=== PATIENT | female | born 1940 | race Caucasian/White ===

== ENCOUNTER → 2017-04-01 | Outpatient (CLI) | payer BC, MEDICARE ==
--- NOTE | 2017-04-05 10:45 | MM ---
Reason for exam: screening (asymptomatic). Last mammogram was performed 1 year ago. History: Patient is postmenopausal. Pre-pectoral silicone gel implants in both breasts, March 14, 2009. Benign stereotactic core biopsy of the right breast, September 25, 1997. Benign cyst aspiration of the right breast. Benign core biopsy of the right breast. Benign excisional biopsy of the left breast. Taking estrogen for 16 years beginning at age 47. Taking progesterone for 16 years beginning at age 47. Physical Findings: A clinical breast exam by your physician is recommended on an annual basis and results should be correlated with mammographic findings. MG 3D Screen Mammo Imp/Cad Bilateral CC, MLO, and ID view(s) were taken. Prior study comparison: March 31, 2016, bilateral MG 3d screen mammo imp/cad. March 18, 2015, bilateral MG screening mammo implant/CAD. The breast tissue is heterogeneously dense. This may lower the sensitivity of mammography. Finding: There are occasional typically benign round calcifications in the left breast. There is no discrete abnormality. Bilateral subglandular implants redemonstrated. ASSESSMENT: Benign, BI-RAD 2 RECOMMENDATION: Routine screening mammogram of both breasts.
== END ==
LOC: RADMAMWWP 09:30
PROVIDERS: ATTEND Obstetrics & Gynecology
DX: Z12.31 Encounter for screening mammogram for malignant neoplasm of breast (principal)
CPT/HCPCS: 77063; G0202

== ENCOUNTER → 2018-02-02 | Outpatient (CLI) | payer BC, MEDICARE ==
--- NOTE | 2018-02-03 08:05 | MM ---
Reason for exam: screening (asymptomatic). Last mammogram was performed 10 months ago. History: Patient is postmenopausal. Pre-pectoral silicone gel implants in both breasts, March 14, 2009. Benign stereotactic core biopsy of the right breast, September 25, 1997. Benign cyst aspiration of the right breast. Benign core biopsy of the right breast. Benign excisional biopsy of the left breast. Took estrogen for 30 years beginning at age 47. Took progesterone for 30 years beginning at age 47. Physical Findings: A clinical breast exam by your physician is recommended on an annual basis and results should be correlated with mammographic findings. MG 3D Screen Mammo Imp/Cad Bilateral CC, MLO, and ID view(s) were taken. Prior study comparison: April 01, 2017, bilateral MG 3d screen mammo imp/cad. March 31, 2016, bilateral MG 3d screen mammo imp/cad. There are scattered fibroglandular densities. Finding: There are typically benign round calcifications in the upper outer quadrant, anterior position of the left breast. There is no discrete abnormality. Bilateral subareolar implants redemonstrated. ASSESSMENT: Benign, BI-RAD 2 RECOMMENDATION: Routine screening mammogram of both breasts in 1 year.
== END | disposition home or self-care (01) ==
LOC: RADMAMWWP 07:42
PROVIDERS: ATTEND Obstetrics & Gynecology
DX: Z12.31 Encounter for screening mammogram for malignant neoplasm of breast (principal); Z98.82 Breast implant status
CPT/HCPCS: 77063; 77067

== ENCOUNTER 2018-05-31 06:14 | Day surgery (SDC) | payer BC, MEDICARE ==
[2018-05-11 09:21] VITALS: BMI 22.3
--- NOTE | 2018-05-30 18:23 | P.HPOB ---
History of Present Illness H&P Date: 05/30/18 Chief Complaint: Postmenopausal bleeding, endometrial thickening This is a 77 y.o. female, 5, para 2, who presents for dilation and curettage with hysteroscopy secondary to post-menopausal bleeding and endometrial thickening on ultrasound. She has been bleeding off and on for about 8 months. Sometimes the bleeding lasts for a couple weeks. Pelvic ultrasound showed uterus measuring 6.4 x 4.4 x 3 cm with endometrial thickness of 8 mm and submucosal fibroid measuring 1.2 x 1 cm. She had a similar episode of bleeding in May 2015 and hysteroscopy at that time showed atrophic lining and benign pathology. She has been on Prempro 0.3/1.5 for some time now and does not want to stop despite understanding the risks. She has also used estrogen cream occasionally for vaginal dryness. OB Hx: . History of 2 vaginal deliveries and 3 miscarriages. 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 Social hx: . Review of Systems Constitutional: Denies chills, Denies fever Eyes: denies blurred vision, denies pain Ears, nose, mouth and throat: Denies headache, Denies sore throat Cardiovascular: Denies chest pain, Denies shortness of breath Gastrointestinal: Denies abdominal pain, Denies diarrhea, Denies nausea, Denies vomiting Genitourinary: Reports abnormal vaginal bleeding, Reports stress incontinence Menstruation: Reports postmenopausal Musculoskeletal: Reports myalgias Integumentary: Denies pruritus, Denies rash Neurological: Denies numbness, Denies weakness Psychiatric: Reports insomnia, Denies anxiety, Denies depression Endocrine: Denies fatigue, Denies weight change Hematologic/Lymphatic: Reports easy bruising Past Medical History Past Medical History: Osteoarthritis (OA) Additional Past Medical History / Comment(s): PM BLEEDING, ONGOING. TOE FUNGUS. ENVIRONMENTAL ALLERGY SX OCC. SPASTIC COLON. History of Any Multi-Drug Resistant Organisms: None Reported Past Surgical History: Breast Surgery, Orthopedic Surgery, Tubal Ligation Additional Past Surgical History / Comment(s): ORTHO: LT 5TH FINGER (DUPUYTRENS) . D&C 4. Dental implant surgery. BENIGN BREAST CYST EXC. D&C, HYSTEROSCOPY 06/2015. Past Anesthesia/Blood Transfusion Reactions: No Reported Reaction Past Psychological History: No Psychological Hx Reported Smoking Status: Never smoker Past Alcohol Use History: Occasional Past Drug Use History: None Reported - Past Family History Father Family Medical History: Coronary Artery Disease (CAD), Deep Vein Thrombosis (DVT ), Myocardial Infarction (UT) Additional Family Medical History / Comment(s): DVT AFTER HIP SURGERY Mother Family Medical History: Coronary Artery Disease (CAD) Medications and Allergies Home Medications Medication Instructions Recorded Confirmed Type Celecoxib [CeleBREX] 200 mg PO QAM 07/04/15 05/31/18 History Estrogen,Con/M-Progest Acet 1 tab PO QAM 07/04/15 05/31/18 History [Prempro 0.3 mg-1.5 mg Tablet] Fluconazole [Diflucan] 150 mg PO Q7D 07/04/15 05/31/18 History Estrogens, Conjugated Cream 1 applicator VAGINAL WEEKLY PRN 07/07/15 05/31/18 History [Premarin Cream] Aspirin [Adult Low Dose Aspirin EC] 0.5 tab PO DAILY 05/11/18 05/31/18 History Citracel (Unknown Dose) 1 tab PO DAILY 05/11/18 05/31/18 History Ginkgo Biloba [place] Extract [Ginkgo 50 mg PO DAILY 05/11/18 05/31/18 History Biloba] Glucosamin Ds (Unknown Dose) 1 tab PO DAILY 05/11/18 05/31/18 History Ipratropium [place] 0.06%Nasal 2 spray EA NOSTRIL BID PRN 05/11/18 05/31/18 History [Atrovent Nasal 0.06%] Methylcellulose (with Sugar) 2 gm PO DAILY 05/11/18 05/31/18 History [Citrucel Powder] Multivit with Calcium,Iron,Min 1 each PO DAILY 05/11/18 05/31/18 History [Women's Multivitamin] Arjay-3/Dha/Epa/Fish Oil [Fish Oil 300 mg PO DAILY 05/11/18 05/31/18 History 500 mg Softgel] Vitamin B Complex/Folic Acid 0.4 mg PO DAILY 05/11/18 05/31/18 History [B-Complex Tablet] Allergies Allergy/AdvReac Type Severity Reaction Status Date / Time Penicillins Allergy Rash/Hives. Verified 05/31/18 06:38 SOB Sulfa (Sulfonamide Allergy Rash/Hives. Verified 05/31/18 06:38 Antibiotics) SOB. Exam Osteopathic Statement: *. No significant issues noted on an osteopathic structural exam other than those noted in the History and Physical/Consult. HEENT: Within normal limits Heart: regular rate and rhythm Lungs: clear to auscultation bilaterally Abdomen: soft, non-tender Pelvic: Parous stenotic os with slight friability. Uterus anteverted, non- tender, with no adnexal masses or tenderness Extremities: Neg. Grady's. Assessment and Plan (1) Endometrial thickening on ultra sound Current Visit: No Status: Acute Code(s): R93.8 - ABNORMAL FINDINGS ON DIAGNOSTIC IMAGING OF VIKTOR * DO NOT USE * SNOMED Code(s): 223927001 (2) Post-menopausal bleeding Current Visit: No Status: Acute Code(s): N95.0 - POSTMENOPAUSAL BLEEDING SNOMED Code(s): 35579820 Plan: Proceed with dilation and curettage with hysteroscopy. I have discussed the risks, benefits, and alternative therapies for the above- mentioned procedure and for both sedation/anesthesia as well as necessary blood products administration, if indicated, as they pertain to this patient. The patient has indicated her understanding and acceptance of the risks and procedures discussed.
[~2018-05-31 06:14] MED LIST: DEXAMETHASONE SOD PHOSPHATE 10 MG/ML 1 ML VIAL IV ONE; HYDROmorphone 0.5 MG/0.5 ML SYRINGE IVP PRN; LACTATED RINGERS 1,000 ML IV SCH; LIDOCAINE 1% 20 ML VIAL (10MG/ML) FOR IV START INTRADERMA PRN; ONDANSETRON 4 MG/2 ML VIAL IVP ONE; Pre Op ABX Message 1 EACH MISC MISCELLANE ONE; SCOPOLAMINE 1.5MG/72HR PATCH TRANSDERM ONE
[2018-05-31 07:08] VITALS: RESP 16
[2018-05-31] MEDS ORDERED: MIDAZOLAM 2 MG/2 ML VIAL ONE (07:26)
[2018-05-31] MEDS ORDERED: LIDOCAINE 1% INJ 10MG/ML (20 ML MDV) ONE (07:26)
[2018-05-31] MEDS ORDERED: PROPOFOL 10 MG/ML 20 ML VIAL IV ONE (07:26)
[2018-05-31] MEDS ORDERED: fentaNYL (PF) 50 MCG/ML 2 ML AMP ONE (07:26)
--- NOTE | 2018-05-31 07:56 | P.OP ---
Date of Procedure: 05/31/18 Preoperative Diagnosis: Postmenopausal bleeding, endometrial thickening Postoperative Diagnosis: Same Procedure(s) Performed: Dilation and curettage with hysteroscopy Anesthesia: other (Mask general) Surgeon: Sanjana Farmer Estimated Blood Loss (ml): 3 Pathology: other (Endometrial curettings) Disposition: same day Indications for Procedure: This is a 77 y.o. female, 5, para 2, who presents for dilation and curettage with hysteroscopy secondary to post-menopausal bleeding and endometrial thickening on ultrasound. She has been bleeding off and on for about 8 months. Sometimes the bleeding lasts for a couple weeks. Pelvic ultrasound showed uterus measuring 6.4 x 4.4 x 3 cm with endometrial thickness of 8 mm and submucosal fibroid measuring 1.2 x 1 cm. She had a similar episode of bleeding in May 2015 and hysteroscopy at that time showed atrophic lining and benign pathology. She has been on Prempro 0.3/1.5 for some time now and does not want to stop despite understanding the risks. She has also used estrogen cream occasionally for vaginal dryness. Operative Findings: Uterus is anteverted and sounded to 5 cm. No adnexal masses are palpated. Upon hysteroscopy a very atrophic endometrial appearance was noted. Her cervix was noted to be atrophic and friable with a stenotic cervical os. Very scant endometrial curettings were obtained. Description of Procedure: The patient is taken to the operating room she is placed in the dorsal lithotomy position. She is prepped and draped in the normal sterile fashion. Her bladder is drained with a catheter and then removed. Examination is performed under anesthesia. Uterus is found to be small, anteverted, with no adnexal masses palpated. Next a weighted speculum was placed in the patient's vagina and a right angle retractor was used to visualize the cervix. The cervix was noted to be slightly friable and stenotic. At first it was difficult even grasp the anterior lip of the cervix with a single-tooth tenaculum. I had to grasp the posterior lip of the cervix with a Allis clamp and then grasp the anterior lip with a single-tooth tenaculum. The Allis clamp was then removed. The cervix was noted to be stenotic and therefore slightly opened with a hemostat. Next the cervix was gently opened with the smallest Lord dilator and then uterine sound was sounded. Uterus was sounded to 5 cm. The cervix was gently dilated further until a hysteroscope could be passed. Hysteroscopy was performed using normal saline. The above-noted findings were made and pictures are taken. Next the hysteroscope was removed. The cervix is gently dilated further. A polyp forceps was introduced with no tissue obtained. Next a small sharp curet was reduced and sharp curettage was performed until a gritty texture was noted. Very scant tissue was obtained. Smooth contour was noted on curetting. The specimen was removed from the field. Single-tooth tenaculum was removed from the cervix. Normal bleeding was noted. All instruments are removed from the vagina. All sponge counts are correct. She is taken to recovery room in stable condition.
[2018-05-31 08:13] VITALS: TEMP 96.8
[2018-05-31] MEDS ORDERED: KETOROLAC 30 MG/ML 1 ML VIAL IVP ONE (08:17)
[2018-05-31 08:59] VITALS: PULSE 62
[2018-05-31 09:28] VITALS: BP 113/57
== END 2018-05-31 10:08 | disposition home or self-care (01) ==
LOC: OR 06:14
PROVIDERS: ATTEND Obstetrics & Gynecology
DX: M19.90 Unspecified osteoarthritis, unspecified site (principal); D25.0 Submucous leiomyoma of uterus; K58.9 Irritable bowel syndrome, unspecified; Z79.82 Long term (current) use of aspirin; Z79.899 Other long term (current) drug therapy; Z88.0 Allergy status to penicillin; Z88.2 Allergy status to sulfonamides
CPT/HCPCS: 88305; 58558; J2250; J1100; J2405; J2001; J3010; J1885; J2704

== ENCOUNTER → 2019-02-14 | Outpatient (CLI) | payer BC, MEDICARE ==
--- NOTE | 2019-02-14 15:44 | BD ---
EXAMINATION TYPE: Axial Bone Density DATE OF EXAM: 02/14/2019 COMPARISON: NONE CLINICAL HISTORY: post menopausal Height: 5'2 Weight: 128 FRAX RISK QUESTIONS: Secondary Osteoporosis: RISK FACTORS HISTORY OF: Postmenopausal woman: y MEDICATIONS: Additional Medications: Additional History: EXAM MEASUREMENTS: Bone mineral densitometry was performed using the [employer] System. Bone mineral density as measured about the Lumbar spine is: ----- L1-L4(G/cm2): 1.298 T Score Values are as follows: ----- L2: 0.2 ----- L3: 1.7 ----- L4: 2.0 ----- L1-L4:1.0 Bone mineral density about the R hip (g/cm2): 0.912 Bone mineral density about the L hip (g/cm2): 0.911 T Score values are as follows: -----R Neck: -0.9 -----L Neck: -0.9 -----R Total: -0.2 -----L Total: 0.1 IMPRESSION: Normal (Values between +1 and -1 indicate normal bone mass). Consider repeating this study in 5 year s or sooner if there is some new clinical indication. NOTE: T-SCORE=SD OF THE YOUNG ADULT MEAN.
--- NOTE | 2019-02-16 10:11 | MM ---
Reason for exam: screening (asymptomatic). Last mammogram was performed 1 year ago. History: Patient is postmenopausal. Pre-pectoral silicone gel implants in both breasts, March 14, 2009. Benign stereotactic core biopsy of the right breast, September 25, 1997. Benign cyst aspiration of the right breast. Benign core biopsy of the right breast. Benign excisional biopsy of the left breast. Took estrogen for 30 years beginning at age 47. Took progesterone for 30 years beginning at age 47. Physical Findings: A clinical breast exam by your physician is recommended on an annual basis and results should be correlated with mammographic findings. MG 3D Screen Mammo Imp/Cad Bilateral CC, MLO, and ID view(s) were taken. Prior study comparison: February 02, 2018, bilateral MG 3d screen mammo imp/cad. April 01, 2017, bilateral MG 3d screen mammo imp/cad. The breast tissue is heterogeneously dense. This may lower the sensitivity of mammography. No significant changes when compared with prior studies. ASSESSMENT: Benign, BI-RAD 2 RECOMMENDATION: Routine screening mammogram of both breasts in 1 year.
== END | disposition home or self-care (01) ==
LOC: RADMAMWWP 12:28
PROVIDERS: ATTEND Obstetrics & Gynecology
DX: Z12.31 Encounter for screening mammogram for malignant neoplasm of breast (principal); N95.1 Menopausal and female climacteric states
CPT/HCPCS: 77063; 77067; 77080

== ENCOUNTER → 2021-02-25 | Outpatient (CLI) | payer BC, MEDICARE ==
--- NOTE | 2021-02-26 13:22 | MM ---
Reason for exam: screening (asymptomatic). Last mammogram was performed 1 year ago. History: Patient is postmenopausal. Pre-pectoral silicone gel implants in both breasts, March 14, 2009. Benign stereotactic core biopsy of the right breast, September 25, 1997. Benign cyst aspiration of the right breast. Benign core biopsy of the right breast. Benign excisional biopsy of the left breast. Took estrogen for 30 years beginning at age 47. Took progesterone for 30 years beginning at age 47. Physical Findings: A clinical breast exam by your physician is recommended on an annual basis and results should be correlated with mammographic findings. MG 3D Screen Mammo Imp/Cad Bilateral CC, MLO, and ID view(s) were taken. Prior study comparison: February 23, 2020, bilateral MG 3d screen mammo imp/cad. February 14, 2019, bilateral MG 3d screen mammo imp/cad. There are scattered fibroglandular densities. Bilateral implants are intact. No significant changes when compared with prior studies. ASSESSMENT: Negative, BI-RAD 1 RECOMMENDATION: Routine screening mammogram of both breasts in 1 year.
== END | disposition home or self-care (01) ==
LOC: RADMAMWWP 08:23
PROVIDERS: ATTEND Obstetrics & Gynecology
DX: Z12.31 Encounter for screening mammogram for malignant neoplasm of breast (principal); Z78.0 Asymptomatic menopausal state
CPT/HCPCS: 77063; 77067

== ENCOUNTER → 2022-03-13 | Outpatient (CLI) | payer BC, MEDICARE ==
--- NOTE | 2022-03-16 16:56 | MM ---
Reason for Exam: Screening (asymptomatic). Last mammogram was performed 1 year(s) and 1 month(s) ago. Patient History: Menarche at age 13. First Full-Term at age 24. Postmenopausal. Estrogen for 30 years from age 47 until age 77. Progesterone for 30 years from age 47 until age 77. Benign Cyst Aspiration on the right side. Benign Core Biopsy on the right side. Benign Excisional Biopsy on the left side. 09/25/1997, Benign Stereotactic Core Biopsy on the right side. 03/14/2009, Bilateral Implants. Risk Values: Clarissa 5 year model risk: 2.2%. NCI Lifetime model risk: 3.4%. Prior Study Comparison: 02/14/2019 Bilateral Screening Mammogram, [facility]. 02/23/2020 Bilateral Screening Mammogram, [facility]. 02/25/2021 Bilateral Screening Mammogram, [facility]. Tissue Density: There are scattered fibroglandular densities. Findings: Analyzed By CAD. Bilateral breast prostheses are present. No suspicious groups of microcalcifications, spiculated or lobular masses, architectural distortion or other secondary signs of malignancy are mammographically apparent. Overall Assessment: Benign, BI-RAD 2 Management: Screening Mammogram of both breasts in 1 year. A negative mammogram report should not preclude additional follow up of suspicious palpable abnormalities. Patient should continue monthly self breast exam. A clinical breast exam by your physician is recommended on an annual basis and results should be correlated with mammographic findings. Electronically signed and approved by: Paul Raymundo D.O. Radiologis
== END | disposition home or self-care (01) ==
LOC: RADMAMWWP 09:00
PROVIDERS: ATTEND Obstetrics & Gynecology
DX: Z12.31 Encounter for screening mammogram for malignant neoplasm of breast (principal); Z78.0 Asymptomatic menopausal state
CPT/HCPCS: 77063; 77067